=== PATIENT | female | born 1975 | race Caucasian/White ===

== ENCOUNTER 2024-11-23 12:40 | Emergency (ER) | payer OTHER, MEDICAID ==
[2024-11-23] MEDS: Ketorolac 30 MG/ML SDV IM ONE (13:36)
== END 2024-11-23 14:38 | disposition home or self-care (01) ==
LOC: JP.ED 12:40
DX: R51.9 Headache, unspecified (principal); J34.89 Other specified disorders of nose and nasal sinuses; Z91.030 Bee allergy status; Z88.0 Allergy status to penicillin; Z86.16 Personal history of COVID-19; Y04.8XXA Assault by other bodily force, initial encounter
CPT/HCPCS: 70486; 96372; 99284; J1885; 99282

== ENCOUNTER 2024-12-26 17:07 | Emergency (ER) | payer MEDICAID | END 2024-12-26 18:30 | disposition left against medical advice (07) | LOC: JP.ED 17:07 | DX: Z53.21 Procedure and treatment not carried out due to patient leaving prior to being seen by health care provider (principal) ==

== ENCOUNTER 2024-12-26 23:07 | Emergency (ER) | payer MEDICAID ==
[2024-12-26 23:42] LABS: APPEARANCE,URINE CLOUDY (CLEAR); BILIRUBIN,URINE NEGATIVE (NEGATIVE); GLUCOSE,URINE 100 mg/dL (NEGATIVE); KETONES,URINE NEGATIVE (NEGATIVE); LEUKOCYTE ESTERASE,URINE LARGE (NEGATIVE); NITRITE,URINE POSITIVE (NEGATIVE); OCCULT BLOOD,URINE MODERATE (NEGATIVE); PROTEIN,URINE >=300 mg/dL (NEGATIVE)
[2024-12-26 23:48] LABS: AMORPHOUS SEDIMENT,URINE NOT SEEN; BACTERIA,URINE MODERATE; COLOR,URINE ORANGE (YELLOW); EPITHELIAL CELLS,URINE FEW; MUCUS,URINE NOT SEEN; WBC,URINE >100 (0-5)
[2024-12-26] MEDS: Sulfamethoxazole/Trimethoprim 800-160 MG Tab PO ONE (23:54)
== END 2024-12-27 00:04 | disposition home or self-care (01) ==
LOC: JP.ED 23:07
DX: N30.00 Acute cystitis without hematuria (principal); F17.200 Nicotine dependence, unspecified, uncomplicated; Z91.030 Bee allergy status; Z88.0 Allergy status to penicillin; Z86.16 Personal history of COVID-19
CPT/HCPCS: 81001; 81025; 87086; 99283; A9270; 87088; 87186

== ENCOUNTER 2025-04-24 22:37 | Emergency (ER) | payer MEDICAID | END 2025-04-24 23:15 | disposition home or self-care (01) | LOC: JP.ED 22:37 | DX: J40 Bronchitis, not specified as acute or chronic (principal); F17.200 Nicotine dependence, unspecified, uncomplicated; Z88.0 Allergy status to penicillin; Z91.030 Bee allergy status; Z86.16 Personal history of COVID-19 | CPT/HCPCS: 99283 ==